=== PATIENT | male | born 1960 | race Hispanic/Latino ===

== ENCOUNTER 2021-11-29 13:16 | Observation (INO) | payer SELFPAY ==
[~2021-11-29] VITALS: Ht 165.1 cm; Wt 81.6 kg
[2021-11-29 14:10] LABS: BASOPHILS # (AUTO) 0.1 (0.0-0.1); BASOPHILS % 0.5 % (0.0-1.0); EOSINOPHILS % 0.1 % (0.0-6.0); HEMATOCRIT 45.9 % (38.2-49.6); HEMOGLOBIN 14.4 g/dL (14.0-18.0); LYMPHOCYTES # (AUTO) 0.9 (1.0-3.2); MEAN CORPUSCULAR HEMOGLOBIN 26.9 pg (28-32); MEAN CORPUSCULAR HGB CONC 31.4 g/dL (31-35); MEAN CORPUSCULAR VOLUME 85.6 fL (81-99); MONOCYTES # (AUTO) 0.5 (0.2-0.8); MONOCYTES % 4.7 % (4.4-11.3); NEUTROPHILS # (AUTO) 8.4 (2.1-6.9); NEUTROPHILS % 85.1 % (38.7-80.0); PLATELET COUNT 142 x10e3/uL (140-360); RED BLOOD COUNT 5.36 x10e6/uL (4.3-5.7)
[2021-11-29 14:22] LABS: INR 0.97; PROTHROMBIN TIME 13.6 seconds (11.9-14.5)
[2021-11-29 14:23] LABS: PARTIAL THROMBOPLASTIN TIME 25.7 seconds (23.8-35.5)
[2021-11-29 14:32] LABS: ALBUMIN 3.9 g/dL (3.5-5.0); ALBUMIN/GLOBULIN RATIO 1.1 (0.8-2.0); ANION GAP 15.4 mmol/L (8-16); CALCIUM 9.4 mg/dL (8.4-10.2); CREATININE, SERUM 0.82 mg/dL (0.72-1.25); POTASSIUM 4.4 mmol/L (3.5-5.1)
[2021-11-29 14:38] LABS: CREATINE KINASE MB 1.3 ng/mL (0-5.0)
[2021-11-29] MEDS ORDERED: SODIUM CHLORIDE 0.9% 1000ML 1,000 ML IV STA (15:46)
[2021-11-29] MEDS ORDERED: ACETAMINOPHEN 325 MG TAB PO ONE (16:00)
[2021-11-29] MEDS ORDERED: MECLIZINE HCL 12.5 MG TAB PO ONE (16:00)
[2021-11-29 16:05] LABS: AMPHETAMINES SCREEN,URINE NEGATIVE (NEGATIVE); BENZODIAZEPINES SCREEN,URINE NEGATIVE (NEGATIVE); PHENCYCLIDINE SCREEN,URINE NEGATIVE (NEGATIVE)
[2021-11-29] MEDS ORDERED: ONDANSETRON HCL INJ 2MG/ML 2ML 2 MG/ML VIAL IV PRN (16:15)
[2021-11-29] MEDS: SODIUM CHLORIDE 0.9% 1000ML 1,000 ML IV SCH (16:38)
[2021-11-29] MEDS: FAMOTIDINE 20 MG/2 ML VIAL IV SCH (16:38)
[2021-11-29 20:39] VITALS: BP 132/75
[2021-11-29 20:44] LABS: CREATINE KINASE MB 0.9 ng/mL (0-5.0)
[2021-11-29 21:40] VITALS: BP 132/75
[2021-11-29 22:00] VITALS: BP 132/75
[2021-11-29] MEDS ORDERED: ATORVASTATIN CA20 MG PO (22:12)
[2021-11-29] MEDS ORDERED: ISOSORBIDE MONO30 MG PO (22:13)
[2021-11-29] MEDS ORDERED: METOPROLOL TART25 MG PO (22:13)
[2021-11-29] MEDS ORDERED: ASPIRIN EC81 MG PO (22:14)
[2021-11-29] MEDS: ATORVASTATIN 40 MG TAB PO SCH (22:43)
[2021-11-30] VITALS (8 sets, daily range): BP systolic 118–150; BP diastolic 61–81
[2021-11-30 00:56] LABS: CREATINE KINASE MB 0.9 ng/mL (0-5.0)
[2021-11-30] MEDS: SODIUM CHLORIDE 0.9% 1000ML 1,000 ML IV SCH ×2 (01:30→15:03)
[2021-11-30] MEDS: FAMOTIDINE 20 MG/2 ML VIAL IV SCH ×2 (05:23→17:21)
[2021-11-30 06:20] LABS: BASOPHILS # (AUTO) 0.1 (0.0-0.1); BASOPHILS % 0.8 % (0.0-1.0); EOSINOPHILS # (AUTO) 0.1 (0.0-0.4); EOSINOPHILS % 1.7 % (0.0-6.0); HEMATOCRIT 42.3 % (38.2-49.6); HEMOGLOBIN 13.3 g/dL (14.0-18.0); LYMPHOCYTES # (AUTO) 1.8 (1.0-3.2); LYMPHOCYTES % 24.1 % (18.0-39.1); MEAN CORPUSCULAR HEMOGLOBIN 26.8 pg (28-32); MEAN CORPUSCULAR HGB CONC 31.4 g/dL (31-35); MEAN CORPUSCULAR VOLUME 85.1 fL (81-99); MONOCYTES # (AUTO) 0.6 (0.2-0.8); NEUTROPHILS % 65.1 % (38.7-80.0); PLATELET COUNT 124 x10e3/uL (140-360); RED BLOOD COUNT 4.97 x10e6/uL (4.3-5.7); RED CELL DISTRIBUTION WIDTH 14.2 % (11.7-14.4)
[2021-11-30 06:54] LABS: ALBUMIN 3.2 g/dL (3.5-5.0); ALBUMIN/GLOBULIN RATIO 1.1 (0.8-2.0); CALCIUM 8.7 mg/dL (8.4-10.2); CHOL/HDL RATIO 4.4 (3.9-4.7); CREATININE, SERUM 0.84 mg/dL (0.72-1.25)
[2021-11-30 07:04] LABS: CREATINE KINASE MB 0.8 ng/mL (0-5.0)
[2021-11-30] MEDS ORDERED: ASPIRIN 81 MG ENTERIC COATED PO SCH (09:00)
[2021-11-30] MEDS: ASPIRIN 81 MG ENTERIC COATED PO SCH (09:00)
[2021-11-30] MEDS: ISOSORBIDE MONONITRATE 30 MG TAB CR PO SCH (09:28)
[2021-11-30] MEDS: METOPROLOL SUCCINATE 25 MG TAB XL PO SCH (09:29)
[2021-11-30] MEDS ORDERED: SIMETHICONE 80 MG CHEW PO PRN (10:15)
[2021-11-30] MEDS ORDERED: DOCUSATE SODIUM 100 MG CAP PO PRN (10:15)
[2021-11-30] MEDS ORDERED: DEXTROSE 50% SYRINGE 50 ML IV PRN (10:15)
[2021-11-30] MEDS ORDERED: ACETAMINOPHEN 325 MG TAB PO PRN (10:15)
[2021-11-30] MEDS ORDERED: MELATONIN 5 MG TABLET PO PRN (10:15)
[2021-11-30] MEDS ORDERED: BENZONATATE 100 MG CAP PO PRN (10:15)
[2021-11-30] MEDS ORDERED: ALBUTEROL/IPRATROPIUM 3 ML NEB NEB PRN (10:15)
[2021-11-30] MEDS ORDERED: LIDOCAINE 4% PATCH TP PRN (10:15)
[2021-11-30] MEDS ORDERED: HYDRALAZINE HCL 20 MG/ML VIAL IV PRN (10:15)
[2021-11-30] MEDS ORDERED: POTASSIUM CHLORIDE 20 MEQ TAB CR PO PRN (10:15)
[2021-11-30] MEDS ORDERED: ONDANSETRON HCL INJ 2MG/ML 2ML 2 MG/ML VIAL IV PRN (10:15)
[2021-11-30] MEDS ORDERED: DIPHENHYDRAMINE HCL 25 MG CAP PO PRN (10:15)
[2021-11-30] MEDS ORDERED: SODIUM CHLORIDE 0.9% 100 ML ONE (13:16)
[2021-11-30] MEDS ORDERED: IOPAMIDOL 370 MG/ML 200 ML INFUS..BTL INJ ONE (13:16)
[2021-11-30] MEDS: ATORVASTATIN 40 MG TAB PO SCH (20:27)
[2021-12-01] VITALS: BP 114/62
[2021-12-01 04:00] VITALS: BP 133/71
[2021-12-01] MEDS: FAMOTIDINE 20 MG/2 ML VIAL IV SCH (05:39)
[2021-12-01 05:56] LABS: BASOPHILS # (AUTO) 0.1 (0.0-0.1); BASOPHILS % 0.8 % (0.0-1.0); EOSINOPHILS # (AUTO) 0.2 (0.0-0.4); EOSINOPHILS % 2.4 % (0.0-6.0); HEMATOCRIT 43.3 % (38.2-49.6); HEMOGLOBIN 13.3 g/dL (14.0-18.0); LYMPHOCYTES # (AUTO) 1.8 (1.0-3.2); LYMPHOCYTES % 25.7 % (18.0-39.1); MEAN CORPUSCULAR HEMOGLOBIN 26.5 pg (28-32); MEAN CORPUSCULAR HGB CONC 30.7 g/dL (31-35); MEAN CORPUSCULAR VOLUME 86.4 fL (81-99); MONOCYTES # (AUTO) 0.8 (0.2-0.8); MONOCYTES % 10.6 % (4.4-11.3); NEUTROPHILS # (AUTO) 4.3 (2.1-6.9); NEUTROPHILS % 60.2 % (38.7-80.0); PLATELET COUNT 128 x10e3/uL (140-360); RED BLOOD COUNT 5.01 x10e6/uL (4.3-5.7); RED CELL DISTRIBUTION WIDTH 14.2 % (11.7-14.4)
[2021-12-01 06:13] LABS: CALCIUM 8.6 mg/dL (8.4-10.2); CREATININE, SERUM 0.78 mg/dL (0.72-1.25)
[2021-12-01] MEDS ORDERED: PANTOPRAZOLE SOD 40 MG TABEC PO SCH (07:30)
[2021-12-01 08:11] VITALS: BP 131/75
[2021-12-01 09:26] VITALS: BP 131/75
[2021-12-01] MEDS: ISOSORBIDE MONONITRATE 30 MG TAB CR PO SCH (09:33)
[2021-12-01] MEDS: METOPROLOL SUCCINATE 25 MG TAB XL PO SCH (09:33)
[2021-12-01] MEDS: ASPIRIN 81 MG ENTERIC COATED PO SCH (09:33)
[2021-12-01 11:14] VITALS: BP 115/71
[2021-12-01] MEDS ORDERED: ONDANSETRON HCL 4 MG ORAL DISINTEGRATING TAB PO PRN (12:45)
[2021-12-01] MEDS ORDERED: FAMOTIDINE 20 MG TAB PO SCH (16:30)
== END 2021-12-01 12:41 | disposition home or self-care (01) ==
LOC: ER 13:36 → ERHOLD 16:13 → MED/SURG 20:28
PROVIDERS: ADMIT Internal Medicine; ATTEND Internal Medicine
DX: R07.89 Other chest pain (principal); E11.9 Type 2 diabetes mellitus without complications; I25.10 Atherosclerotic heart disease of native coronary artery without angina pectoris; I10 Essential (primary) hypertension; R42 Dizziness and giddiness; Z83.3 Family history of diabetes mellitus; Z95.1 Presence of aortocoronary bypass graft; Z79.82 Long term (current) use of aspirin; Z82.49 Family history of ischemic heart disease and other diseases of the circulatory system; Z20.822 Contact with and (suspected) exposure to COVID-19
CPT/HCPCS: 36415 ×3; 70450; 70496; 70498; 71045; 80048; 80053 ×2; 80061; 80307; 82550 ×2; 82553 ×2; 83036; 83880; 84484 ×2; 85025 ×3; 85610; 85730; 93005; 93306; 93880; 94799 ×3; 96360; 99284; G0378 ×3; J7030 ×3; J7050; J8597; Q9967; S0164; U0002; J2405